=== PATIENT | female | born 1960 | race Caucasian/White ===

== ENCOUNTER 2017-01-19 11:13 | Outpatient (CLI) | payer MEDICARE, MEDICAID ==
[2017-01-19 18:22] LABS: BASOPHILS % (AUTO) 0.6 %; EOSINOPHILS # (AUTO) 0.1 10^3/uL (0.0-0.7); HCT - HEMATOCRIT 37.1 % (37.0-47.0); HGB - HEMOGLOBIN 12.6 g/dL (12.0-16.0); LYMPHOCYTES # (AUTO) 1.4 10^3/uL (1.5-3.5); LYMPHOCYTES % (AUTO) 25.3 %; MEAN CORPUSCULAR HEMOGLOBIN 32.6 pg (27.0-31.0); MEAN CORPUSCULAR HGB CONC 33.9 g/dL (32.0-36.0); MEAN CORPUSCULAR VOLUME 96.2 fL (81.0-99.0); MEAN PLATELET VOLUME 8.3 fL (7.9-10.8); MONOCYTES # (AUTO) 0.5 10^3/uL (0.0-1.0); MONOCYTES % (AUTO) 9.7 %; NEUTROPHILS # (AUTO) 3.4 10^3/uL (1.5-6.6); NEUTROPHILS % (AUTO) 62.4 %; NUCLEATED RED BLOOD CELLS AUTO 0.1 /100WBC; RED BLOOD COUNT 3.86 10^6/uL (4.20-5.40); RED CELL DISTRIBUTION WIDTH 13.4 % (12.0-15.0); UNCORRECTED WHITE BLOOD COUNT 5.5 x10^3/uL; WHITE BLOOD COUNT 5.5 x10^3/uL (4.8-10.8)
[2017-01-19 18:41] LABS: ALBUMIN/GLOBULIN RATIO 1.3 (1.0-2.2); BILIRUBIN,TOTAL 0.3 mg/dL (0.2-1.0); BUN - BLOOD UREA NITROGEN 21 mg/dL (6-20); CALCIUM 8.7 mg/dL (8.5-10.3); CARBON DIOXIDE - CO2 24 mmol/L (21-32); CHLORIDE 105 mmol/L (101-111); CHOL/HDL RATIO 2.6 (<4.4); CHOLESTEROL 166 mg/dL; CREATININE 0.8 mg/dL (0.4-1.0); GFR - MDRD 73 (>89); GLUCOSE 101 mg/dL (70-100); HDL CHOLESTEROL 64 mg/dL; LDL/HDL RATIO 1.4 (<4.4); POTASSIUM 3.9 mmol/L (3.5-5.0); SODIUM 138 mmol/L (135-145); TOTAL PROTEIN 7.1 g/dL (6.7-8.2); TRIGLYCERIDES 55 mg/dL; VLDL CHOLESTEROL 11 mg/dL
== END 2017-01-19 11:14 | disposition home or self-care (01) ==
LOC: LAB.F 11:13
PROVIDERS: ATTEND Nurse Practitioner Family
DX: R53.83 Other fatigue (principal); Z13.6 Encounter for screening for cardiovascular disorders; E66.01 Morbid (severe) obesity due to excess calories
CPT/HCPCS: 36415; 80053; 80061; 84443; 85025

== ENCOUNTER 2017-02-01 13:20 | Outpatient (CLI) | payer MEDICARE, MEDICAID ==
--- NOTE | 2017-02-05 16:32 | Mammography Report ---
DIGITAL SCREENING MAMMOGRAM: 02/01/2017 CLINICAL INDICATION: A 57-year-old with history of late childbearing for screening, history of benig n biopsy. COMPARISON: Films from [place], [place] dated 07/29/2013, 07/22/2012, 03/09/2008 TECHNIQUE: Routine CC and MLO projections were obtained of the breasts. FINDINGS: The breasts again demonstrate heterogeneously dense fibroglandular parenchyma bilaterally. Coarse and punctate, typically benign calcifications are present. No suspicious masses, clustered microcalcifications, or regions of architectural distortion are identified. IMPRESSION: BENIGN FINDINGS. RECOMMENDATION: Routine annual screening unless otherwise clinically indicated. BIRADS CATEGORY 2 - BENIGN FINDINGS. STANDARD QUALIFYING STATEMENTS 1. This examination was reviewed with the aid of Computer-Aided Detection (CAD). 2. A negative or benign imaging report should not delay biopsy if clinically suspicious findings are present. Consider surgical consultation if warranted. More than 5% of cancers are not identified by i maging. 3. Dense breasts may obscure an underlying neoplasm. JOB #: [id number] EXT JOB #:[id number]
== END 2017-02-01 13:21 | disposition home or self-care (01) ==
LOC: DI.S 13:20
PROVIDERS: ATTEND Nurse Practitioner Family
DX: Z12.31 Encounter for screening mammogram for malignant neoplasm of breast (principal)
CPT/HCPCS: 77067

== ENCOUNTER 2017-02-02 08:00 | Outpatient (CLI) | payer MEDICARE, MEDICAID ==
[2017-02-02 17:34] LABS: BILIRUBIN,URINE NEGATIVE (NEGATIVE)
[2017-02-02 17:48] LABS: UR CULTURE IF IND NOT INDICATED
== END 2017-02-02 08:01 | disposition home or self-care (01) ==
LOC: LAB.F 08:00
PROVIDERS: ATTEND Nurse Practitioner Family
DX: R31.0 Gross hematuria (principal)
CPT/HCPCS: 81001; 87086

== ENCOUNTER 2017-04-13 11:46 | Outpatient (CLI) | payer MEDICARE, MEDICAID | END 2017-04-13 11:47 | disposition home or self-care (01) | LOC: LAB.R 11:46 | PROVIDERS: ATTEND Nurse Practitioner Family | DX: R10.2 Pelvic and perineal pain (principal) | CPT/HCPCS: 87086 ==

== ENCOUNTER 2017-04-20 14:51 | Outpatient (CLI) | payer MEDICARE, MEDICAID ==
--- NOTE | 2017-04-21 17:55 | Ultrasound Report ---
EXAM: PELVIC ULTRASOUND EXAM DATE: 04/20/2017 03:14 PM. CLINICAL HISTORY: Pelvic pain. COMPARISON: None. TECHNIQUE: Realtime transabdominal pelvic scan performed to identify the uterus and adnexa and as an overview of other pelvic structures, followed by transvaginal scan to provide greater detail of the u terus and adnexa, with static image documentation. FINDINGS: Uterus: 6.0 x 3.4 x 4.9 cm, volume 5.2 cc. Anteverted position. Normal overall size and echotexture. Masses: None. Endometrium: 2 mm. Normal. Cervix: Unremarkable. Right Ovary: 2.6 x 1.5 x 2.1 cm, volume 4.6 cc. Normal echotexture and blood flow. Left Ovary: Nonvisualized. Free Fluid: None. Other: Large amount of fluid in the vagina initially, emptying post void. IMPRESSION: Large amount of fluid in the vagina initially, emptying postvoid, otherwise unremarkable pelvic ultrasound. [facility] Referring Provider Line: [phone] SITE ID: [id number]
== END 2017-04-20 14:52 | disposition home or self-care (01) ==
LOC: DI 14:51
PROVIDERS: ATTEND Nurse Practitioner Family
DX: R10.2 Pelvic and perineal pain (principal)
CPT/HCPCS: 76830; 76856

== ENCOUNTER 2017-05-01 08:05 | Outpatient (CLI) | payer MEDICARE, MEDICAID ==
--- NOTE | 2017-05-01 19:03 | Ultrasound Report ---
DATE OF SERVICE: 05/01/2017 COMPLETE ABDOMINAL ULTRASOUND: 05/01/2017 CLINICAL INDICATION: Pain. TECHNIQUE: Real-time scanning was performed with sales representative printing paper static images obtained. The liver measures 18.7 cm. Hepatic echogenicity is increased, compatible with fatty infiltration. There is a cluster of small cysts in the left lobe of the liver measuring 1.4 cm in aggregate. No solid hepatic lesion is appreciated. No biliary dilatation is seen. The common bile duct measures 7 mm. The gallbladder is normal. The pancreas is obscured by bowel gas. The spleen measures 10.4 cm, and demonstrates normal echotexture. The kidneys are normal, with the right measuring 12.3 cm and the left measuring 12.1 cm. The abdominal aorta is normal in caliber. The inferior vena cava is unremarkable. No free fluid is present. IMPRESSION: Fatty infiltration of the liver, with incidental cysts in the left lobe. TD: 05/01/2017 20:01
== END 2017-05-01 08:06 | disposition home or self-care (01) ==
LOC: DI 08:05
PROVIDERS: ATTEND Nurse Practitioner Family
DX: K76.0 Fatty (change of) liver, not elsewhere classified (principal)
CPT/HCPCS: 76700

== ENCOUNTER 2017-08-01 14:54 | Emergency (ER) | payer MEDICARE, MEDICAID ==
--- NOTE | 2017-08-01 15:21 | ED Physician Documentation ---
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 Last night she developed acute pain in her left fifth toe with radiation up to her knee and she became quite concerned as she has previously had osteomyelitis in that toe and required months of antibiotic therapy and nearly had to have the toe amputated. She has been on amoxicillin for a dental abscess in the left upper jaw and despite being on the antibiotic still she is now developed a similar abscess in the right lower jaw. Review of Systems Constitutional: denies: Fever, Myalgias, Fatigue, Sweats Eyes: denies: Photophobia Ears: denies: Ear pain Nose: denies: Rhinorrhea / runny nose, Congestion Throat: reports: Dental pain / toothache. denies: Sore throat Cardiac: denies: Chest pain / pressure, Palpitations Respiratory: denies: Dyspnea, Cough GI: denies: Abdominal Pain, Nausea, Vomiting, Constipation, Diarrhea : denies: Dysuria, Frequency Skin: denies: Rash Musculoskeletal: reports: Extremity pain. denies: Neck pain, Back pain, Extremity swelling, Pain with weight bearing Neurologic: denies: Generalized weakness, Focal weakness, Numbness PD PAST MEDICAL HISTORY - Past Medical History Endocrine/Autoimmune: None - Past Surgical History Past Surgical History: Yes - Present Medications Home Medications: Ambulatory Orders Medication Instructions Recorded Confirmed Duloxetine HCl [Cymbalta] 120 mg PO DAILY 11/10/13 08/01/17 Imatinib Mesylate [Gleevec] 400 mg PO DAILY 11/10/13 08/01/17 Tramadol HCl 50 mg PO Q6HR PRN 11/10/13 08/01/17 Naproxen 500 mg PO BID 11/25/13 08/01/17 Amox/Clav 875/125 [Augmentin] 1 each PO Q12H #20 tablet 08/01/17 - Allergies Allergies/Adverse Reactions: Allergies Allergy/AdvReac Type Severity Reaction Status Date / Time Sulfa (Sulfonamide Allergy Unknown Verified 08/01/17 15:07 Antibiotics) - Social History Does the pt smoke?: No Smoking Status: Never smoker Does the pt drink ETOH?: No Does the pt have substance abuse?: No - POLST Patient has POLST: No PD ED PE NORMAL - Vitals Vital signs reviewed: Yes - General General: Alert and oriented X 3, No acute distress, Well developed/nourished - HEENT HEENT: Atraumatic, PERRL, EOMI, Other (Hypertensive diastolic examination of the mouth reveals a small firm swelling to the right gum on the lower jaw laterally without fluctuance.) - Neck Neck: Supple, no meningeal sign - Respiratory Respiratory: No respiratory distress - Derm Derm: Normal color, Warm and dry, No rash - Extremities Extremities: No deformity, No edema, Other (Examination of the left great toe shows some mild tenderness to movement of this without swelling. There is some erythema to the toes which the patient states is normal for those toes. There is no abnormality to the left knee the ligaments are stable the knee and runs to her range of motion without difficulty and there is no joint effusion.) - Neuro Neuro: No motor deficit, No sensory deficit Eye Opening: Spontaneous Motor: Obeys Commands Verbal: Oriented GCS Score: 15 - Psych Psych: Normal mood, Normal affect Results - Vitals Vitals: Vital Signs - 24 hr 08/01/17 08/01/17 15:03 16:36 Temperature 37 C Heart Rate 83 75 Respiratory 20 16 Rate Blood Pressure 115/99 H 144/97 H O2 Saturation 98 97 Oxygen O2 Source Room air - Labs Labs: Laboratory Tests 08/01/17 08/01/17 08/01/17 15:30 15:30 15:30 WBC 5.5 RBC 3.78 L Hgb 12.3 Hct 35.8 L MCV 94.5 MCH 32.6 H MCHC 34.5 RDW 14.1 Plt Count 262 MPV 7.1 L Neut # 3.3 Lymph # 1.7 [place] # 0.5 Eos # 0.1 Baso # 0.0 Absolute Nucleated RBC 0.00 Nucleated RBC % 0.0 ESR 24 Sodium 137 Potassium 3.5 Chloride 104 Carbon Dioxide 27 Anion Gap 6.0 BUN 20 Creatinine 0.8 Estimated GFR (MDRD) 73 L Glucose 118 H Calcium 8.6 Total Bilirubin 0.5 AST 35 ALT 25 Alkaline Phosphatase 54 C-Reactive Protein 4.3 H Total Protein 7.1 Albumin 4.1 Globulin 3.0 Albumin/Globulin Ratio 1.4 Lipase 24 - Rads (name of study) knee left Radiology: Prelim report reviewed (Impression: 1. Normal alignment without fracture or dislocation of the left knee. 2. Moderate tricompartmental degenerative arthritis evident.), EMP read indepedently, See rad report left toes Radiology: Prelim report reviewed (Impression: 1. Normal alignment without evident fracture or dislocation of left fifth digit. 2. Interval development of joint space narrowing with erosion at the PIP joint with appearance that it is most compatible with psoriatic arthritis.), EMP read indepedently, See rad report PD MEDICAL DECISION MAKING - ED course Complexity details: reviewed old records, reviewed results, re-evaluated patient , considered differential, d/w patient ED course: 57-year-old female with a history of CML was on Gleevec has developed an abscess in her mouth 2 weeks ago she has been on some antibiotic for this this is improved and despite being on the antibiotic to near her last day she is developed a second abscess in her mouth and coinciding with this she developed some pain in her left fifth toe. This was concerning to the patient because this is the toe she previously had osteomyelitis in. She had some on radiation of the pain to her knee associated with this and she come into the emergency department for evaluation. Examination of the knee and toe are fairly unremarkable and x-ray exam is without evidence of osteomyelitis. The patient' s white blood cell count is normal sedimentation rate is normal the CRP is mildly elevated. On examination she does have evidence of an infection in the right lower jaw and we will change her antibiotic to Augmentin. Departure - Departure Disposition: 01 Home, Self Care Clinical Impression: Dental abscess, Toe pain, left Instructions: ED Abscess Dental Follow-Up: Iman Mendes ARNP [Primary Care Provider] - Prescriptions: Amox/Clav 875/125 [Augmentin] 1 each PO Q12H #20 tablet Discharge Date/Time: 08/01/17 16:40
[2017-08-01 15:40] LABS: BASOPHILS % (AUTO) 0.6 %; EOSINOPHILS # (AUTO) 0.1 10^3/uL (0.0-0.7); EOSINOPHILS % (AUTO) 2.1 %; HGB - HEMOGLOBIN 12.3 g/dL (12.0-16.0); LYMPHOCYTES # (AUTO) 1.7 10^3/uL (1.5-3.5); LYMPHOCYTES % (AUTO) 30.1 %; MEAN CORPUSCULAR HEMOGLOBIN 32.6 pg (27.0-31.0); MEAN CORPUSCULAR HGB CONC 34.5 g/dL (32.0-36.0); MEAN CORPUSCULAR VOLUME 94.5 fL (81.0-99.0); MEAN PLATELET VOLUME 7.1 fL (7.9-10.8); MONOCYTES # (AUTO) 0.5 10^3/uL (0.0-1.0); MONOCYTES % (AUTO) 8.2 %; NEUTROPHILS # (AUTO) 3.3 10^3/uL (1.5-6.6); PLT - PLATELET COUNT 262 10^3/uL (130-450); RED BLOOD COUNT 3.78 10^6/uL (4.20-5.40); RED CELL DISTRIBUTION WIDTH 14.1 % (12.0-15.0); WHITE BLOOD COUNT 5.5 x10^3/uL (4.8-10.8)
[2017-08-01 16:01] LABS: ALBUMIN 4.1 g/dL (3.2-5.5); ALBUMIN/GLOBULIN RATIO 1.4 (1.0-2.2); BILIRUBIN,TOTAL 0.5 mg/dL (0.2-1.0); CALCIUM 8.6 mg/dL (8.5-10.3); CREATININE 0.8 mg/dL (0.4-1.0); CRP - C-REACTIVE PROTEIN 4.3 mg/dL (0-1.0); TOTAL PROTEIN 7.1 g/dL (6.7-8.2)
--- NOTE | 2017-08-01 16:05 | XRAY Report ---
EXAM: LEFT KNEE RADIOGRAPHY EXAM DATE: 08/01/2017 03:51 PM. CLINICAL HISTORY: Knee pain connected to the toe pain. COMPARISON: None. TECHNIQUE: 4 views. FINDINGS: Bones: No acute fracture lines are seen. No focal abnormal osseous lesions are evident. Joints: Moderate tricompartmental joint space narrowing with subchondral sclerosis and osteophyte see n. No subluxations. No joint effusion evident. Soft Tissues: No soft tissue swelling. Traction osteophytes at the superior patella. IMPRESSION: 1. Normal alignment without fracture or dislocation of the left knee. 2. Moderate tricompartmental degenerative arthritis evident [facility] Referring Provider Line: [phone] SITE ID: [id number]
--- NOTE | 2017-08-01 16:05 | XRAY Preliminary Report ---
Exam: XR KNEE 4 VIEW LT IMPRESSION: 1. Normal alignment without fracture or dislocation of the left knee. 2. Moderate tricompartmental degenerative arthritis evident [facility] SITE ID: [id number]
--- NOTE | 2017-08-01 16:09 | XRAY Report ---
EXAM: LEFT TOE RADIOGRAPHY EXAM DATE: 08/01/2017 03:51 PM. CLINICAL HISTORY: 5th toe pain. COMPARISON: 11/10/2013. TECHNIQUE: 3 views. FINDINGS: Bones: No fracture lines are seen. No focal abnormal osseous lesions. Joints: No subluxations. Interval development of joint space narrowing with erosion at the PIP joint. Soft Tissues: Mild soft tissue swelling. IMPRESSION: 1. Normal alignment without evident fracture or dislocation of the left fifth digit. 2. Interval development of joint space narrowing with erosion at the PIP joint with appearance that i s most compatible with psoriatic arthritis. [facility] Referring Provider Line: [phone] SITE ID: [id number]
[2017-08-01 16:36] VITALS: BP 144/97
== END 2017-08-01 16:40 | disposition home or self-care (01) ==
LOC: ED 14:54
DX: M79.675 Pain in left toe(s) (principal); K04.7 Periapical abscess without sinus; Z85.6 Personal history of leukemia
CPT/HCPCS: 36415; 73660; 80053; 83690; 85025; 85651; 86140; 87040; 99283; 99284

== ENCOUNTER 2018-10-02 07:24 | Outpatient (CLI) | payer MEDICARE ==
[2018-10-02 11:35] LABS: BASOPHILS % (AUTO) 0.6 %; EOSINOPHILS # (AUTO) 0.1 10^3/uL (0.0-0.7); EOSINOPHILS % (AUTO) 2.4 %; HGB - HEMOGLOBIN 12.7 g/dL (12.0-16.0); LYMPHOCYTES # (AUTO) 1.4 10^3/uL (1.5-3.5); LYMPHOCYTES % (AUTO) 25.9 %; MEAN CORPUSCULAR HEMOGLOBIN 32.1 pg (27.0-31.0); MEAN CORPUSCULAR HGB CONC 32.4 g/dL (32.0-36.0); MEAN PLATELET VOLUME 10.2 fL (7.9-10.8); MONOCYTES # (AUTO) 0.5 10^3/uL (0.0-1.0); MONOCYTES % (AUTO) 9.4 %; NEUTROPHILS # (AUTO) 3.3 10^3/uL (1.5-6.6); NEUTROPHILS % (AUTO) 61.1 %; PLT - PLATELET COUNT 289 10^3/uL (130-450); RED BLOOD COUNT 3.96 10^6/uL (4.20-5.40); RED CELL DISTRIBUTION WIDTH 13.4 % (12.0-15.0); WHITE BLOOD COUNT 5.4 x10^3/uL (4.8-10.8)
[2018-10-02 11:45] LABS: ALBUMIN 3.8 g/dL (3.2-5.5); ALBUMIN/GLOBULIN RATIO 1.2 (1.0-2.2); ALKALINE PHOSPHATASE 63 IU/L (42-121); ALT ALANINE AMINOTRANSFERASE 22 IU/L (10-60); AST ASPARTATE AMINOTRANSFERASE 24 IU/L (10-42); BILIRUBIN,TOTAL 0.5 mg/dL (0.2-1.0); BUN - BLOOD UREA NITROGEN 21 mg/dL (6-20); CALCIUM 9.3 mg/dL (8.5-10.3); CARBON DIOXIDE - CO2 28 mmol/L (21-32); CHLORIDE 104 mmol/L (101-111); CHOL/HDL RATIO 3.1 (<4.4); CHOLESTEROL 205 mg/dL; CREATININE 0.9 mg/dL (0.4-1.0); GFR - MDRD 64 (>89); GLUCOSE 118 mg/dL (70-100); HDL CHOLESTEROL 66 mg/dL; LDL CHOLESTEROL,CALCULATED 122 mg/dL; LDL/HDL RATIO 1.8 (<4.4); SODIUM 145 mmol/L (135-145); TOTAL PROTEIN 7.1 g/dL (6.7-8.2); VLDL CHOLESTEROL 17 mg/dL
[2018-10-02 11:50] LABS: HB2 TOTAL 12.9 g/dL; HEMOGLOBIN A1C 0.48 g/dL; HEMOGLOBIN A1C % 5.6 % (4.6-6.2)
== END 2018-10-02 07:25 | disposition home or self-care (01) ==
LOC: LAB.F 07:24
PROVIDERS: ATTEND Registered Nurse
DX: C92.Z0 Other myeloid leukemia not having achieved remission (principal); R73.01 Impaired fasting glucose; E66.01 Morbid (severe) obesity due to excess calories; R53.83 Other fatigue; Z79.899 Other long term (current) drug therapy; Z13.29 Encounter for screening for other suspected endocrine disorder
CPT/HCPCS: 36415; 80053; 80061; 83036; 83721; 84443; 85025

== ENCOUNTER 2018-11-01 17:44 | Outpatient (CLI) | payer MEDICARE ==
[2018-11-01] MEDS ORDERED: IOVERSOL 320 50 ML VIAL ONE (17:57)
[2018-11-01] MEDS ORDERED: IOVERSOL 320 100 ML VIAL IVP ONE ×2 (17:57→19:06)
[2018-11-01] MEDS ORDERED: IOVERSOL 320 50 ML VIAL PO ONE (19:06)
--- NOTE | 2018-11-02 22:23 | CT Report ---
Reason: HX DESMOID TUMOR OF ABD WALL, NAUSEA VOMITING Procedure Date: 11/01/2018 Accession Number: [id number] / [id number] Procedure: CT - Abdomen/Pelvis W CPT Code: FULL RESULT: EXAM: CT ABDOMEN AND PELVIS EXAM DATE: 11/01/2018 07:09 PM. CLINICAL HISTORY: HX DESMOID TUMOR OF ABD WALL, NAUSEA VOMITING. COMPARISONS: None. TECHNIQUE: Routine helical CT imaging was performed through the abdomen and pelvis. IV contrast: OPTI 320 90ML. Enteric contrast: Yes. Reconstructions: Coronal and sagittal. In accordance with CT protocol optimization, one or more of the following dose reduction techniques were utilized for this exam: automated exposure control, adjustment of mA and/or KV based on patient size, or use of iterative reconstructive technique. FINDINGS: ABDOMEN: Lung Bases: Incompletely included lower lungs are grossly clear. Heart size is within normal limits. No basilar effusions. Liver: Unremarkable aside from a subcentimeter low attenuating lesion adjacent to the intrahepatic IVC, likely a cyst. Spleen: Unremarkable. Pancreas: Unremarkable. Gallbladder/Bile Ducts: Small calcified gallstone. Biliary tree is normal caliber. Adrenal Glands: Unremarkable. Kidneys: No mass, calculi, or hydronephrosis. Peritoneum/Mesentery/Bowel: No free fluid, free air, or collection. No intestinal obstruction or inflammation. The appendix is within normal limits. Lymph nodes: No mesenteric, periportal, or retroperitoneal lymphadenopathy. Vasculature: Abdominal aorta is nonaneurysmal. Portal vein is patent. Hepatic veins are patent. PELVIS: The bladder is unremarkable for the degree of distention. Uterus is present. No obvious abnormally enlarged adnexal abnormalities. No pelvic lymphadenopathy. Bones: No suspicious osseous lesions. No anterior abdominal wall masses seen. Scarring in the right anterior subcutaneous fat. Right paramedian abdominal wall musculature appears to have been resected/atrophic. IMPRESSION: No CT evidence for recurrence, although contrast-enhanced abdominal wall MRI would be more sensitive and specific. No intra-abdominal masses or acute abnormalities. [facility]
== END 2018-11-01 17:45 | disposition home or self-care (01) ==
LOC: DI 17:44
PROVIDERS: ATTEND Internal Medicine Gastroenterology
DX: R11.2 Nausea with vomiting, unspecified (principal); Z87.39 Personal history of other diseases of the musculoskeletal system and connective tissue
CPT/HCPCS: 74177; Q9967

== ENCOUNTER 2018-11-14 12:13 | Outpatient (CLI) | payer MEDICARE ==
--- NOTE | 2018-11-15 09:13 | Mammography Report ---
Reason: POSTMENOPAUSAL Procedure Date: 11/14/2018 Accession Number: [id number] / [id number] Procedure: JAY - Screening Mammo w/Mio CPT Code: FULL RESULT: EXAM: Screening Mammo w/Mio DATE: 11/14/2018 2:35 PM CLINICAL HISTORY: Screening encounter. History of late childbearing. TECHNIQUE: (B) - Bilateral CC, laterally exaggerated CC, MLO views were obtained. COMPARISON: 02/01/2017 through 07/22/2012. PARENCHYMAL PATTERN: (A) - The breast(s) demonstrate(s) scattered fibroglandular densities. FINDINGS: There are coarse typically benign calcifications There are no suspicious masses, calcifications, or areas of distortion. IMPRESSION: Benign findings. BI-RADS category 2. RECOMMENDATION: (ANNUAL) - Recommend routine annual screening mammography. BI-RADS CATEGORY: (2) - Benign Findings. STANDARD QUALIFYING STATEMENTS: 1. This examination was not reviewed with the aid of Computer-Aided Detection (CAD). 2. A negative or benign imaging report should not preclude biopsy if clinically suspicious findings are present. 3. Dense breasts may obscure an underlying neoplasm. 4. This examination was reviewed with the aid of 3D breast imaging (tomosynthesis).
== END 2018-11-14 12:14 | disposition home or self-care (01) ==
LOC: DI 12:13
PROVIDERS: ATTEND Registered Nurse
DX: Z12.31 Encounter for screening mammogram for malignant neoplasm of breast (principal)
CPT/HCPCS: 77063; 77067

== ENCOUNTER 2018-11-18 11:22 | Day surgery (SDC) | payer MEDICARE ==
[2018-11-18] MEDS ORDERED: fentaNYL 100 MCG/2 ML VIAL IVP ONE ×2 (11:23→13:55)
[2018-11-18] MEDS ORDERED: MIDAZOLAM 2 MG/2 ML VIAL IVP ONE ×2 (11:23→13:55)
[2018-11-18] MEDS ORDERED: LACTATED RINGERS 1,000 ML IV ONE (12:27)
[2018-11-18] MEDS ORDERED: LIDO GARGLE 30 ML BOTTLE ONE (12:48)
--- NOTE | 2018-11-18 13:09 | ANESTHESIA ---
Pre-Anesthesia VS, & Labs - Diagnosis Screening - Procedure EGD, colonscopy Vital Signs: Temp Pulse Resp BP Pulse Ox 36.3 C L 80 16 152/83 H 97 11/18/18 11:37 11/18/18 11:37 11/18/18 11:37 11/18/18 11:37 11/18/18 11:37 Height 5 ft 4 in Weight (kg) 124.6 kg Body Mass Index 41.9 - NPO >8 hours - Is Patient ?: Not Applicable - Lab Results Lab results reviewed: Yes Home Medications and Allergies Home Medications: Ambulatory Orders Bupropion HCl [Bupropion Xl] 300 mg PO DAILY 11/13/18 Naproxen Sodium [Aleve] 220 mg PO BID PRN 11/13/18 Oxycodone HCl [Oxycodone HCl ER] 10 mg PO 5XD 11/13/18 Imatinib Mesylate [Gleevec] 400 mg PO DAILY 11/10/13 Bupropion HCl [Bupropion Xl] 300 mg PO DAILY 11/13/18 Naproxen Sodium [Aleve] 220 mg PO BID PRN 11/13/18 Oxycodone HCl [Oxycodone HCl ER] 10 mg PO 5XD 11/13/18 Allergies/Adverse Reactions: Allergies Allergy/AdvReac Type Severity Reaction Status Date / Time Sulfa (Sulfonamide Allergy Rash Verified 11/13/18 15:48 Antibiotics) Anes History & Medical History - Anesthetic History Anesthesia Complications: reports: No previous complications Family history of Anesthesia Complications: Denies Family history of Malignant Hyperthermia: Denies - Medical History Cardiovascular: reports: None Pulmonary: reports: None Gastrointestinal: reports: Other Urinary: reports: Incontinence, Chronic bladder infection, Other Neuro: reports: None Musculoskeletal: reports: Osteoarthritis, Fibromyalgia Endocrine/Autoimmune: reports: None Blood Disorders: reports: HIV/AIDS Skin: reports: None Smoking Status: Former smoker Psychosocial: reports: Depression - Surgical History General: 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
[2018-11-18] MEDS ORDERED: LIDO GARGLE 30 ML BOTTLE PO ONE (13:25)
[2018-11-18] MEDS ORDERED: PROPOFOL 200 MG/20 ML VIAL IVP ONE (13:55)
[2018-11-18] MEDS ORDERED: LIDOCAINE-MPF 2% 5 ML VIAL IM ONE (13:55)
[2018-11-18 14:35] VITALS: BP 131/57
== END 2018-11-18 11:23 | disposition home or self-care (01) ==
LOC: SDS 11:22
PROVIDERS: ATTEND Internal Medicine Gastroenterology
PROC: 0DB78ZX Excision of Stomach, Pylorus, Via Natural or Artificial Opening Endoscopic, Diagnostic (ICD-10-PCS; 2018-11-18)
PROC: 0DBN8ZZ Excision of Sigmoid Colon, Via Natural or Artificial Opening Endoscopic (ICD-10-PCS; principal; 2018-11-18 13:15)
PROC: 0DB98ZX Excision of Duodenum, Via Natural or Artificial Opening Endoscopic, Diagnostic (ICD-10-PCS; 2018-11-18 13:15)
DX: Z12.11 Encounter for screening for malignant neoplasm of colon (principal); R11.2 Nausea with vomiting, unspecified; K31.9 Disease of stomach and duodenum, unspecified; K63.5 Polyp of colon; C92.11 Chronic myeloid leukemia, BCR/ABL-positive, in remission; E66.01 Morbid (severe) obesity due to excess calories; G89.29 Other chronic pain; M19.90 Unspecified osteoarthritis, unspecified site; M79.7 Fibromyalgia; Z86.03 Personal history of neoplasm of uncertain behavior; Z79.899 Other long term (current) drug therapy; Z79.1 Long term (current) use of non-steroidal anti-inflammatories (NSAID); Z86.14 Personal history of Methicillin resistant Staphylococcus aureus infection; Z79.891 Long term (current) use of opiate analgesic; Z68.41 Body mass index [BMI] 40.0-44.9, adult; Z21 Asymptomatic human immunodeficiency virus [HIV] infection status
CPT/HCPCS: 43239; 45380; 87081; A9270; J7120

== ENCOUNTER 2019-05-19 12:35 | Outpatient (CLI) | payer MEDICARE ==
--- NOTE | 2019-05-19 16:25 | MRI Report ---
Reason: LT FOOT PAIN Procedure Date: 05/19/2019 Accession Number: [id number] / [id number] Procedure: MRI - Foot LT W/O CPT Code: Final Report FULL RESULT: EXAM: LEFT MIDFOOT MRI WITHOUT CONTRAST EXAM DATE: 05/19/2019 02:07 PM. CLINICAL HISTORY: Left foot pain. COMPARISON: TOE(S) LT 08/01/2017 3:34 PM LOWER EXTREMITY LEFT W/WO 08/20/2015 4:30 PM. TECHNIQUE: Multiplanar, multisequence T1-weighted and fluid-sensitive sequences of the midfoot without contrast. Other: None. FINDINGS: Bones: There is some low T1 signal and minimal increased T2 signal on both sides at the PIP and DIP joint of the fifth toe. Marrow cavity is largely not involved. Some osteoarthritic changes with edema on both sides of the second and third TMT joint and also at the navicular-first cuneiform joint are noted. Articular Cartilage: There is articular cartilaginous loss at the joints of the midfoot. Assessment of articular cartilage at the fifth toe is difficult, no joint effusions or loose bodies. Ligaments: The visualized intertarsal, intermetatarsal, and tarsometatarsal ligaments are intact. This includes the Lisfranc ligament. The visualized collateral ligaments are intact. Tendons: The flexor and extensor tendons are unremarkable. Musculature: No edema or fatty atrophy. Other: No effusions. No intermetatarsal bursitis. Subcutaneous soft tissue swelling and edema is seen over the dorsal midfoot and forefoot. No focal fluid collections or abscesses. IMPRESSION: 1. Some low signal on T1 and minimal increased T2 signal on both sides of the PIP and DIP joint of the fifth toe. 2. No MRI evidence for osteomyelitis. 3. Second and third TMT joints and the navicular-first cuneiform shows significant arthritic change. Intertarsal ligaments, tarsometatarsal ligaments including the Lisfranc ligament appear normal. 4. Subcutaneous soft tissue swelling and edema over the dorsal midfoot and forefoot. [facility]
== END 2019-05-19 12:36 | disposition home or self-care (01) ==
LOC: DI 12:35
PROVIDERS: ATTEND Orthopaedic Surgery
DX: M19.072 Primary osteoarthritis, left ankle and foot (principal)

== ENCOUNTER 2019-08-25 11:43 | Outpatient (CLI) | payer MEDICARE | END 2019-08-25 11:44 | disposition home or self-care (01) | LOC: LAB 11:43 | PROVIDERS: ATTEND Physician Assistant | DX: R23.8 Other skin changes (principal) | CPT/HCPCS: 36415; 86787 ==

== ENCOUNTER 2020-03-15 17:10 | Outpatient (CLI) | payer MEDICARE | END 2020-03-15 17:11 | disposition home or self-care (01) | LOC: COV 17:10 | PROVIDERS: ATTEND Family Medicine | DX: R53.83 Other fatigue (principal); R07.0 Pain in throat; Z20.828 Contact with and (suspected) exposure to other viral communicable diseases ==

== ENCOUNTER 2020-09-10 08:00 | Outpatient (CLI) | payer MEDICARE | END 2020-09-10 23:59 | disposition home or self-care (01) | LOC: LAB.S 08:00 | PROVIDERS: ATTEND Registered Nurse | DX: R30.0 Dysuria (principal) | CPT/HCPCS: 81002; 87086; 87181 ==

== ENCOUNTER 2021-03-01 17:00 | Outpatient (CLI) | payer MEDICARE ==
[2021-03-01 20:01] LABS: BILIRUBIN,URINE NEGATIVE (NEGATIVE); GLUCOSE, URINE (UA) NEGATIVE (NEGATIVE); KETONES,URINE (UA) NEGATIVE (NEGATIVE); LEUKOCYTE ESTERASE, URINE NEGATIVE (NEGATIVE); NITRITE,URINE NEGATIVE (NEGATIVE); OCCULT BLOOD,URINE NEGATIVE (NEGATIVE); PH,URINE 5.5 PH (5.0-7.5); PROTEIN,URINE NEGATIVE (NEGATIVE); UROBILINOGEN,URINE 0.2 (NORMAL) E.U./dL (NORMAL)
[2021-03-01 20:02] LABS: CLARITY,URINE CLEAR (CLEAR)
[2021-03-01 20:16] LABS: BACTERIA,URINE Few /HPF (None Seen); RBC,URINE 0-5 /HPF (0-5); SQUAMOUS EPITHELIAL CELL,UR FEW Squamous (<= Few); WBC,URINE 0-3 /HPF (0-5)
== END 2021-03-01 23:59 | disposition home or self-care (01) ==
LOC: LAB 17:00
PROVIDERS: ATTEND Registered Nurse
DX: N39.0 Urinary tract infection, site not specified (principal)
CPT/HCPCS: 81001; 87086

== ENCOUNTER 2021-05-17 11:01 | Outpatient (CLI) | payer MEDICARE ==
[2021-05-17 12:06] LABS: BASOPHILS % (AUTO) 0.8 %; EOSINOPHILS # (AUTO) 0.2 10^3/uL (0.0-0.7); EOSINOPHILS % (AUTO) 3.2 %; HCT - HEMATOCRIT 38.2 % (37.0-47.0); HGB - HEMOGLOBIN 13.2 g/dL (12.0-16.0); LYMPHOCYTES # (AUTO) 1.5 10^3/uL (1.5-3.5); LYMPHOCYTES % (AUTO) 28.4 %; MEAN CORPUSCULAR HEMOGLOBIN 32.8 pg (27.0-31.0); MEAN CORPUSCULAR HGB CONC 34.6 g/dL (32.0-36.0); MEAN PLATELET VOLUME 10.1 fL (7.9-10.8); MONOCYTES # (AUTO) 0.6 10^3/uL (0.0-1.0); MONOCYTES % (AUTO) 11.3 %; NEUTROPHILS % (AUTO) 56.1 %; PLT - PLATELET COUNT 235 10^3/uL (130-450); RED BLOOD COUNT 4.02 10^6/uL (4.20-5.40); RED CELL DISTRIBUTION WIDTH 13.9 % (12.0-15.0); WHITE BLOOD COUNT 5.3 x10^3/uL (4.8-10.8)
[2021-05-17 12:20] LABS: ALBUMIN 4.2 g/dL (3.2-5.5); ALBUMIN/GLOBULIN RATIO 1.3 (1.0-2.2); BILIRUBIN,TOTAL 0.4 mg/dL (0.2-1.0); CALCIUM 9.1 mg/dL (8.5-10.3); POTASSIUM 4.7 mmol/L (3.5-5.0); TOTAL PROTEIN 7.4 g/dL (6.7-8.2)
[2021-05-17 15:34] LABS: TOTAL PROTEIN 7.4 g/dL (6.7-8.2)
== END 2021-05-17 11:02 | disposition home or self-care (01) ==
LOC: LAB 11:01
PROVIDERS: ATTEND Internal Medicine Hematology & Oncology
DX: C92.10 Chronic myeloid leukemia, BCR/ABL-positive, not having achieved remission (principal)
CPT/HCPCS: 36415; 80053; 84075; 84155; 85025

== ENCOUNTER 2021-12-20 14:51 | Outpatient (CLI) | payer MEDICARE ==
--- NOTE | 2021-12-21 12:50 | Mammography Report ---
BILATERAL DIGITAL SCREENING MAMMOGRAM 3D/2D: 12/20/2021 CLINICAL: Routine screening. Comparison is made to exams dated: 11/14/2018 mammogram and 02/01/2017 mammogram - [facility]. Both breasts are heterogeneously dense, which may obscure small masses (category c / 51-75% glandula r tissue). No significant masses, calcifications, or other findings are seen in either breast. There has been no significant interval change. IMPRESSION: NEGATIVE There is no mammographic evidence of malignancy. A 1 year screening mammogram is recommended. Based on the Tyrer Cuzick model (a risk assessment model) the patients lifetime risk is 12.8% and he r 10 year risk is 5.8%. According to the ACR, ACS, and NCCN guidelines, an annual breast MRI exam merrill ng with mammogram is recommended if the patients lifetime risk is 20% or greater. This exam was interpreted at Station ID: [id number]. NOTE: For mammograms, a report in lay terms will be sent to the patient. Approximately 15% of breast malignancies will not be visualized mammographically. In the management of a palpable breast mass, a negative mammogram must not discourage biopsy of a clinically suspicious lesion. Electronically Signed By: Thad Hanley M.D. [email or web address]/cmrad:12/21/2021 10:01:12 ACR BI-RADS Category 1: Negative 3341F PARENCHYMAL PATTERN: (D) - The breast(s) demonstrate(s) heterogeneously dense fibroglandular yanet ma. BI-RADS CATEGORY: (1) - 1 RECOMMENDATION: (ANNUAL) - Recommend routine annual screening mammography. [id number] 1 year screening LATERALITY: (B)
== END 2021-12-20 14:52 | disposition home or self-care (01) ==
LOC: DI.S 14:51
PROVIDERS: ATTEND Registered Nurse
DX: Z12.31 Encounter for screening mammogram for malignant neoplasm of breast (principal)

== ENCOUNTER 2022-08-10 07:35 | Outpatient (CLI) | payer MEDICARE | END 2022-08-10 07:36 | disposition home or self-care (01) | LOC: LAB 07:35 | PROVIDERS: ATTEND Internal Medicine Hematology & Oncology | DX: C92.90 Myeloid leukemia, unspecified, not having achieved remission (principal) | CPT/HCPCS: 36415 ==

== ENCOUNTER 2022-09-11 07:08 | Outpatient (CLI) | payer MEDICARE ==
[2022-09-11 14:55] LABS: BASOPHILS % (AUTO) 0.7 %; EOSINOPHILS # (AUTO) 0.1 10^3/uL (0.0-0.7); EOSINOPHILS % (AUTO) 2.3 %; HCT - HEMATOCRIT 39.6 % (37.0-47.0); HGB - HEMOGLOBIN 12.8 g/dL (12.0-16.0); LYMPHOCYTES % (AUTO) 33.3 %; MEAN CORPUSCULAR HEMOGLOBIN 32.3 pg (27.0-31.0); MEAN CORPUSCULAR HGB CONC 32.3 g/dL (32.0-36.0); MEAN PLATELET VOLUME 10.3 fL (7.9-10.8); MONOCYTES # (AUTO) 0.7 10^3/uL (0.0-1.0); MONOCYTES % (AUTO) 10.9 %; NEUTROPHILS # (AUTO) 3.2 10^3/uL (1.5-6.6); NEUTROPHILS % (AUTO) 52.5 %; PLT - PLATELET COUNT 277 10^3/uL (130-450); RED BLOOD COUNT 3.96 10^6/uL (4.20-5.40); RED CELL DISTRIBUTION WIDTH 13.7 % (12.0-15.0)
[2022-09-11 16:29] LABS: ALBUMIN/GLOBULIN RATIO 1.2 (1.0-2.2); BILIRUBIN,TOTAL 0.7 mg/dL (0.2-1.0); CALCIUM 9.2 mg/dL (8.5-10.3); POTASSIUM 4.5 mmol/L (3.5-5.0); TOTAL PROTEIN 7.3 g/dL (6.7-8.2)
== END 2022-09-11 07:09 | disposition home or self-care (01) ==
LOC: LAB.S 07:08
PROVIDERS: ATTEND Internal Medicine Hematology & Oncology
DX: C92.10 Chronic myeloid leukemia, BCR/ABL-positive, not having achieved remission (principal)
CPT/HCPCS: 36415; 80053; 81206; 81207; 85025

== ENCOUNTER 2023-02-13 08:00 | Outpatient (CLI) | payer MEDICARE | END 2023-02-13 08:01 | disposition home or self-care (01) | LOC: LAB.S 08:00 | PROVIDERS: ATTEND Internal Medicine Hematology & Oncology | DX: C92.90 Myeloid leukemia, unspecified, not having achieved remission (principal) | CPT/HCPCS: 36415 ==

== ENCOUNTER 2023-03-09 10:42 | Outpatient (CLI) | payer MEDICARE ==
[2023-03-09 15:31] LABS: BASOPHILS % (AUTO) 0.5 %; EOSINOPHILS # (AUTO) 0.2 10^3/uL (0.0-0.7); EOSINOPHILS % (AUTO) 3.1 %; HCT - HEMATOCRIT 40.6 % (37.0-47.0); LYMPHOCYTES # (AUTO) 1.7 10^3/uL (1.5-3.5); LYMPHOCYTES % (AUTO) 26.8 %; MEAN CORPUSCULAR HEMOGLOBIN 31.6 pg (27.0-31.0); MEAN CORPUSCULAR VOLUME 98.5 fL (81.0-99.0); MEAN PLATELET VOLUME 11.1 fL (7.9-10.8); MONOCYTES # (AUTO) 0.6 10^3/uL (0.0-1.0); MONOCYTES % (AUTO) 10.2 %; NEUTROPHILS # (AUTO) 3.7 10^3/uL (1.5-6.6); NEUTROPHILS % (AUTO) 59.2 %; PLT - PLATELET COUNT 263 10^3/uL (130-450); RED BLOOD COUNT 4.12 10^6/uL (4.20-5.40); RED CELL DISTRIBUTION WIDTH 13.7 % (12.0-15.0); WHITE BLOOD COUNT 6.2 x10^3/uL (4.8-10.8)
== END 2023-03-09 10:43 | disposition home or self-care (01) ==
LOC: LAB.S 10:42
PROVIDERS: ATTEND Internal Medicine Hematology & Oncology
DX: C92.10 Chronic myeloid leukemia, BCR/ABL-positive, not having achieved remission (principal)
CPT/HCPCS: 36415; 85025

== ENCOUNTER 2023-07-03 07:26 | Outpatient (CLI) | payer MEDICARE ==
[2023-07-03 14:55] LABS: BASOPHILS % (AUTO) 0.7 %; EOSINOPHILS # (AUTO) 0.2 10^3/uL (0.0-0.7); HCT - HEMATOCRIT 40.3 % (37.0-47.0); HGB - HEMOGLOBIN 12.6 g/dL (12.0-16.0); LYMPHOCYTES # (AUTO) 1.7 10^3/uL (1.5-3.5); LYMPHOCYTES % (AUTO) 29.3 %; MEAN CORPUSCULAR HEMOGLOBIN 31.2 pg (27.0-31.0); MEAN CORPUSCULAR HGB CONC 31.3 g/dL (32.0-36.0); MEAN CORPUSCULAR VOLUME 99.8 fL (81.0-99.0); MEAN PLATELET VOLUME 11.2 fL (7.9-10.8); MONOCYTES # (AUTO) 0.6 10^3/uL (0.0-1.0); MONOCYTES % (AUTO) 10.7 %; NEUTROPHILS # (AUTO) 3.2 10^3/uL (1.5-6.6); NEUTROPHILS % (AUTO) 56.1 %; PLT - PLATELET COUNT 257 10^3/uL (130-450); RED BLOOD COUNT 4.04 10^6/uL (4.20-5.40); RED CELL DISTRIBUTION WIDTH 14.3 % (12.0-15.0); WHITE BLOOD COUNT 5.6 x10^3/uL (4.8-10.8)
[2023-07-03 15:58] LABS: ALBUMIN/GLOBULIN RATIO 1.5 (1.0-2.2); BILIRUBIN,TOTAL 0.4 mg/dL (0.2-1.0); CALCIUM 9.1 mg/dL (8.5-10.3); CREATININE 0.9 mg/dL (0.6-1.3); POTASSIUM 4.5 mmol/L (3.5-4.5); TOTAL PROTEIN 6.6 g/dL (6.4-8.9)
[2023-07-03 17:31] LABS: CHOL/HDL RATIO 2.5 (<4.4); CHOLESTEROL 179 mg/dL; HDL CHOLESTEROL 71 mg/dL; LDL CHOLESTEROL,CALCULATED 91 mg/dL; LDL/HDL RATIO 1.3 (<4.4); TRIGLYCERIDES 86 mg/dL (48-352); VLDL CHOLESTEROL 17 mg/dL
[2023-07-03 17:46] LABS: THYROID STIMULATING HORMONE 3.68 uIU/mL (0.34-5.60)
== END 2023-07-03 07:27 | disposition home or self-care (01) ==
LOC: LAB.S 07:26
PROVIDERS: ATTEND Registered Nurse
DX: C92.10 Chronic myeloid leukemia, BCR/ABL-positive, not having achieved remission (principal); Z79.899 Other long term (current) drug therapy; Z13.220 Encounter for screening for lipoid disorders
CPT/HCPCS: 36415; 80053; 80061; 83721; 84443; 85025

== ENCOUNTER 2023-11-14 08:38 | Outpatient (CLI) | payer MEDICARE ==
[2023-11-14 15:08] LABS: BASOPHILS % (AUTO) 0.7 %; EOSINOPHILS # (AUTO) 0.2 10^3/uL (0.0-0.7); EOSINOPHILS % (AUTO) 2.7 %; HCT - HEMATOCRIT 39.5 % (37.0-47.0); HGB - HEMOGLOBIN 12.4 g/dL (12.0-16.0); LYMPHOCYTES # (AUTO) 1.6 10^3/uL (1.5-3.5); LYMPHOCYTES % (AUTO) 28.2 %; MEAN CORPUSCULAR HGB CONC 31.4 g/dL (32.0-36.0); MEAN CORPUSCULAR VOLUME 98.8 fL (81.0-99.0); MEAN PLATELET VOLUME 10.3 fL (7.9-10.8); MONOCYTES # (AUTO) 0.5 10^3/uL (0.0-1.0); MONOCYTES % (AUTO) 9.2 %; NEUTROPHILS # (AUTO) 3.3 10^3/uL (1.5-6.6); PLT - PLATELET COUNT 266 10^3/uL (130-450); RED CELL DISTRIBUTION WIDTH 13.9 % (12.0-15.0); WHITE BLOOD COUNT 5.5 x10^3/uL (4.8-10.8)
[2023-11-14 15:56] LABS: ALBUMIN 4.2 g/dL (3.2-5.5); ALBUMIN/GLOBULIN RATIO 1.9 (1.0-2.2); BILIRUBIN,TOTAL 0.4 mg/dL (0.2-1.0); CALCIUM 9.1 mg/dL (8.5-10.3); CHOL/HDL RATIO 2.4 (<4.4); CHOLESTEROL 194 mg/dL; CREATININE 0.9 mg/dL (0.6-1.3); HDL CHOLESTEROL 80 mg/dL; LDL CHOLESTEROL,CALCULATED 97 mg/dL; LDL/HDL RATIO 1.2 (<4.4); POTASSIUM 4.3 mmol/L (3.5-4.5); TOTAL PROTEIN 6.4 g/dL (6.4-8.9); TRIGLYCERIDES 84 mg/dL; VLDL CHOLESTEROL 17 mg/dL
== END 2023-11-14 08:39 | disposition home or self-care (01) ==
LOC: LAB.S 08:38
PROVIDERS: ATTEND Registered Nurse
DX: C92.10 Chronic myeloid leukemia, BCR/ABL-positive, not having achieved remission (principal); Z79.899 Other long term (current) drug therapy; Z13.220 Encounter for screening for lipoid disorders
CPT/HCPCS: 36415; 80053; 80061; 81206; 81207; 83721; 84443; 85025